=== PATIENT | male | born 1990 | race Caucasian/White ===

== ENCOUNTER 2021-09-04 20:38 | Emergency (ER) | payer BC, SELFPAY ==
--- NOTE | ~2021-09-04 | CT_ITS ---
EXAMINATION: CT HEAD WITHOUT CONTRAST CLINICAL INFORMATION: Left facial weakness COMPARISON: None. TECHNIQUE: Contiguous axial imaging was performed from the skull base to vertex without intravenous contrast. This CT examination was performed using dose optimization techniques as appropriate, variously including the following: * Automated exposure control * Adjustment of mA and/or kV according to patient size (this includes techniques or standardized protocols for targeted exams where dose is matched to indication/reason for exam; i.e. extremities or head) Use of iterative reconstruction technique DLP: 776 mGy-cm. FINDINGS: There is no evidence of acute intracranial hemorrhage or territorial infarction. No abnormal mass effect or midline shift is seen. [place] to white matter differentiation is well preserved. No extra-axial fluid collections are identified. No hydrocephalus. No significant volume loss. There is no abnormal attenuation within the brain parenchyma. The osseous structures and soft tissues are normal. The mastoid air cells and visualized portions of the paranasal sinuses are well aerated. CT/CT head/brain wo con IMPRESSION: No acute intracranial pathology.
[2021-09-04 20:43] VITALS: BP 124/72; PULSE 70; RESP 17; TEMP 36.5; O2SAT 99; BMI 37.3
[2021-09-04 21:05] VITALS: BP 133/76; PULSE 64; RESP 16; TEMP 36.8; O2SAT 98
--- NOTE | 2021-09-04 21:31 | ED.NEUROSD ---
HPI - Neuro Symptoms/Deficit General Chief Complaint: Neuro Symptoms/Deficit Stated Complaint: Possible stroke Time Seen by Provider: 09/04/21 20:54 Source: patient and family (Spouse) Mode of arrival: ambulatory Limitations: no limitations History of Present Illness HPI Narrative: 30-year-old male came in for evaluation of left facial weakness. Left facial weakness started 3 days ago, patient started to notice since yesterday, patient is unable to fully close his left eye, complaining of drooling on the left side of the face, unable to smile more with the left side of the face, feeling numbness on the left side of the face, patient otherwise declined any other neurological deficit or symptoms, no weakness, no numbness, no abnormal gait, no chest pain, no abdominal pain. No recent sickness or ENT symptoms in particular no left ear pain. Never had similar symptoms in the past. Patient otherwise healthy no other medical problems. Patient declined any family history of stroke in particular in young ages. Related Data Previous Rx's Medication Instructions Recorded carboxymethylcellulose sodium 1 % 1 drp OPHTHALMIC (EYE) TID #15 ml 09/04/21 eye drops (Artificial Tears (carboxymethylcellulose)) prednisone 20 mg tablet 20 mg PO BID #10 tab 09/04/21 valacyclovir 1 gram tablet 1,000 mg PO TID #7 tab 09/04/21 (Valtrex) Allergies Allergy/AdvReac Type Severity Reaction Status Date / Time No Known Allergies Allergy Verified 09/04/21 20:42 Review of Systems Review of Systems: All other systems are reviewed and are negative Constitutional: Reports as per HPI and Reports no additional constitutional complaints Eyes: Reports as per HPI and Reports no additional eye complaints Reports system reviewed and no additional complaints, except as documented Cardiovascular: Reports as per HPI and Reports no additional cardiovascular complaints Respiratory: Reports as per HPI and Reports no additional respiratory complaints Gastrointestinal: Reports as per HPI and Reports no additional gastrointestinal complaints Genitourinary: Reports no additional female genitourinary complaints Musculoskeletal: Reports no additional musculoskeletal complaints Skin/Breast: Reports system reviewed and no additional complaints, except as docu Psychiatric: Reports no additional psychiatric complaints Endocrine: Reports no additional endocrine complaints Hematologic/Lymphatic: Reports no additional hematologic/lymphatic complaints Allergic/Immunologic: Reports no additional allergic/immunologic complaints Reports system reviewed and no additional complaints, except as documented and Reports Abnormal speech present [facility] Past Medical History Medical History No known health problems Social History Social History Advance Directives: No Physical Exam Vital Signs: Vital Signs: Last Vital Signs Temp 98.2 F 09/04/21 21:05 Pulse 64 09/04/21 21:05 Resp 16 09/04/21 21:05 BP 133/76 09/04/21 21:05 Pulse Ox 98 09/04/21 21:05 BMI result Body Mass Index 37.3 Vital signs have been reviewed as appeared to be correct. Blood pressure normal. Heart rate normal. Respiration rate normal. Temperature normal. Oxygen saturation normal. Appearance: Alert. Oriented X3. No acute distress. Head: Normal external exam. Normocephalic. Atraumatic. No Malhotra signs noted. No raccoon eyes noted Eyes: PERRLA. EOMI. Conjunctiva and sclera normal. Eyelids normal. ENT: TM's Normal. Pharynx normal. Uvula midline. Moist mucous membranes. No trismus noted. No drooling noted. No muffled voice noted. Neck: Normal inspection. Neck supple. FROM. No adenopathy. Thyroid Normal. No meningeal signs. No neck mass noted. CVS: Normal heart rate and rhythm. Heart sound normal. No murmurs noted. Pulses normal throughout. Respiratory: No respiratory distress. Painless inspiration. Breath sounds normal. No wheezes/rales/rhonchi noted. Chest nontender. No accessory muscle usage noted or decreased air movement noted. Abdomen: Soft and nontender. Bowel sounds normal in all 4 quadrants. No distention noted. No organomegaly noted. No visible injury noted. Back: No CVA tenderness. Full range of motion noted. Skin: Skin warm and dry. Normal skin color. Normal skin turgor. No rashes/lesions/lacerations noted. Extremities: No lower extremity edema. Extremities exhibit normal range of motion. Extremities nontender. Neuro: Oriented X 3. Cranial nerve exam: Left facial droop, unable to fully close left eye, unable to smile with left side of the face, weakness affecting left side of the forehead and lower facial muscle, decreased sensation to light touch on the left at face, otherwise rest of the cranial nerve are grossly intact. No motor deficit. No sensory deficit. Reflexes normal. Course Course Course Narrative: Assessment and plan. 30-year-old male came in with 3 days of left facial droop, physical exam and neurological exam is consistent with Simons's palsy, given patient's age, no other comorbidities and no risk for family history. Normal head CT annual exam. Will start the patient on prednisone/antiviral medication. Artificial tears Lyme testing is pending. Patient was instructed to follow up with PCP or return to the emergency department if worsening of his symptoms. Follow-up with neurology as an outpatient. MDM - Neuro Symptoms/Deficit Medical Records Attestation: I reviewed the patient's medical records. Lab Data Attestation: I reviewed the patient's lab results. Result diagrams: 09/04/21 22:21 09/04/21 22:21 Labs: Lab Results 09/04/21 09/04/21 09/04/21 Range/Units 22:21 22:21 23:06 WBC 7.5 (4.8-10.8) X10*3/uL RBC 4.86 (4.60-5.80) X10*6/uL Hgb 14.8 (14.0-18.0) g/dl Hct 44.0 (42.0-52.0) % MCV 90.5 (80.0-98.0) fL MCH 30.5 (27.0-33.0) pg MCHC 33.6 (31.0-36.0) g/dl RDW 12.6 (11.0-16.0) % Plt Count 280 (160-400) X10*3/uL MPV 9.6 (9.4-12.4) fL Immature Gran % (Auto) 0.1 (0.0-0.4) % Neut % (Auto) 45.9 (45-73) % Lymph % (Auto) 43.3 H (20-40) % [place] % (Auto) 8.8 (2-11) % Eos % (Auto) 1.5 (0-4) % Baso % (Auto) 0.4 (0-2) % Lymph # (Auto) 3.2 (1.2-4.9) X10*3/uL [place] # (Auto) 0.7 (0.1-1.2) X10*3/uL Eos # (Auto) 0.1 (0.0-0.4) X10*3/uL Baso # (Auto) 0.0 (0.0-0.2) X10*3/uL Abs Immat Gran (auto) 0.01 (0.00-0.03) X10*3/uL Absolute Neuts (auto) 3.4 (2.0-8.3) x10*3/uL Absolute Nucleated RBC 0.000 (0.0-0.012) X10*3/uL Nucleated RBC % (auto) 0.0 (0.0-0.2) /100WBC Sodium 139 (135-145) mmol/L Potassium 4.5 (3.3-5.1) mmol/L Chloride 104 (96-108) mmol/L Carbon Dioxide 30 H (22-29) mmol/L Anion Gap 10 L (12-20) BUN 19 H (9-16) mg/dL Creatinine 1.16 (0.5-1.4) mg/dL Estim Creat Clear Calc 120.9 Estimated GFR > 60 Random Glucose 98 (60-115) mg/dL Calcium 9.5 (8.4-10.2) mg/dL Total Bilirubin 0.4 (0.0-1.0) mg/dL Direct Bilirubin < 0.2 (0.0-0.5) mg/dL AST 20 (5-37) U/L ALT 28 (0-40) U/L Alkaline Phosphatase 62 (39-117) U/L Total Protein 7.1 (6.5-8.0) g/dL Albumin 4.0 (3.5-5.0) g/dL Lipase 31 (8-78) U/L Urine Color YELLOW Urine Appearance CLEAR Urine pH 5.5 (5.0-8.0) Ur Specific [place] >= 1.030 H (1.005-1.025) Urine Protein NEG (NEG-TRACE) MG/DL Urine Glucose (UA) NEG (NEG) MG/DL Urine Ketones NEG (NEG) MG/DL Urine Blood TRACE (NEG) Urine Nitrite NEG (NEG) Ur Leukocyte Esterase NEG (NEG) Urine RBC 1-4 (0) /HPF Urine WBC 0-2 (0-4) /HPF Ur Squamous Epith Cells NONE /LPF Urine Bacteria NONE /LPF Urine Mucus TRACE /LPF Imaging Data Head CT: Attestation: I personally reviewed and interpreted this imaging study as follows: Radiologist's impression: No acute intracranial pathology. NIH Stroke Scale Internal: Initial- Upon Arrival Level of Consciousness: Alert Level of Consciousness Questions: Answers both questions correctly Level of Consciousness Commands: Performs both tasks correctly Best Gaze: Normal Visual: No visual loss Facial Palsy: Partial paralysis Motor Arm (Right): No drift Motor Arm (Left): No drift Motor Leg (Right): No drift Motor Leg (Left): No drift Limb Ataxia: Absent Sensory: Normal Best Language: No aphasia Dysarthia: Normal Extinction and Inattention: No abnormality Score: 2 Discharge Plan Discharge Clinical Impression: Left-sided Simons's palsy Patient Disposition: Home, Self-Care Instructions: Simons Palsy (ED) Prescriptions: New Artificial Tears (cmc) 1 % drops 1 drp ophthalmic (eye) TID Qty: 15 0RF valacyclovir [Valtrex] 1 gram tablet 1,000 mg PO TID Qty: 7 0RF prednisone 20 mg tablet 20 mg PO BID Qty: 10 0RF Referrals: Júnior Bejarano MD [Physician] - 2 days
[2021-09-04 22:29] LABS: MANUAL DIFF FLAG NO
[2021-09-04 22:30] LABS: Basophils Percent Auto 0.4 % (0-2); Eosinophils Absolute Auto 0.1 X10*3/uL (0.0-0.4); Eosinophils Percent Auto 1.5 % (0-4); Hemoglobin 14.8 g/dl (14.0-18.0); Imm Gran Abs Auto 0.01 X10*3/uL (0.00-0.03); Imm Gran Pct Auto 0.1 % (0.0-0.4); Lymphocytes Absolute Auto 3.2 X10*3/uL (1.2-4.9); Lymphocytes Percent Auto 43.3 % (20-40); Mean Corpuscular HGB Conc 33.6 g/dl (31.0-36.0); Mean Corpuscular Hemoglobin 30.5 pg (27.0-33.0); Mean Corpuscular Volume 90.5 fL (80.0-98.0); Mean Platelet Volume 9.6 fL (9.4-12.4); Monocytes Absolute Auto 0.7 X10*3/uL (0.1-1.2); Monocytes Percent Auto 8.8 % (2-11); Neutrophils Absolute Auto 3.4 x10*3/uL (2.0-8.3); Neutrophils Percent Auto 45.9 % (45-73); Platelet Count 280 X10*3/uL (160-400); Red Blood Count 4.86 X10*6/uL (4.60-5.80); Red Cell Distribution Width 12.6 % (11.0-16.0); White Blood Count 7.5 X10*3/uL (4.8-10.8)
[2021-09-04 22:55] LABS: Alanine Aminotransferase 28 U/L (0-40); Alkaline Phosphatase 62 U/L (39-117); Anion Gap 10 (12-20); Aspartate Amino Transferase 20 U/L (5-37); Bilirubin Direct < 0.2 mg/dL (0.0-0.5); Bilirubin Total 0.4 mg/dL (0.0-1.0); Blood Urea Nitrogen 19 mg/dL (9-16); Calcium 9.5 mg/dL (8.4-10.2); Carbon Dioxide 30 mmol/L (22-29); Chloride 104 mmol/L (96-108); Creatinine Clr Calc Pharmacy 120.9; Estimated Glomerular Filt Rate > 60; Glucose Random 98 mg/dL (60-115); Lipase 31 U/L (8-78); Potassium 4.5 mmol/L (3.3-5.1); Sodium 139 mmol/L (135-145); Total Protein 7.1 g/dL (6.5-8.0)
[2021-09-04 23:12] LABS: Appearance Urine CLEAR; Color Urine YELLOW; Glucose Urine UA NEG (NEG); Leukocyte Esterase Urine NEG (NEG); Nitrite Urine NEG (NEG); PH 5.5 (5.0-8.0); Specific Gravity - Urine >= 1.030 (1.005-1.025); UACC Culture Trigger NO; Urine Blood TRACE (NEG); Urine Ketones NEG (NEG); Urine Protein NEG (NEG-TRACE)
[2021-09-04 23:19] LABS: Mucus Urine TRACE /LPF; WBC Urine 0-2 /HPF (0-4)
[2021-09-04] MEDS: predniSONE 20 MG TABLET 40 MG PO (23:47)
[2021-09-06 21:41] LABS: Lyme Abs Screen <0.90 index
== END 2021-09-05 00:01 | disposition home or self-care (01) ==
PROVIDERS: Emergency Provider Emergency Medicine
DX: G51.0 Bell's palsy (principal); R29.702 NIHSS score 2; Z79.899 Other long term (current) drug therapy
CPT/HCPCS: 36415; 70450; 80048; 80076; 81001; 83690; 85025; 86617; 86618; 99283; 99284